=== PATIENT | female | born 1940 | race Caucasian/White ===

== ENCOUNTER 2016-10-15 20:33 | Emergency (ER) | payer MEDICARE, OTHER ==
--- NOTE | 2016-10-16 19:59 | ER ---
ADMIT: 10/15/2016 RM/LOC: ER [facility] MR#: [id number] [address] [address] DEEPIKA SWAIN [address] [place] [address] Emergency Room Report SEX: F AGE: 76 : 1940 DATE: 10/15/2016 TIME: 2032 hours. Please refer to my T-sheet for complete H and P. HISTORY OF PRESENT ILLNESS: Briefly, the patient is a 76-year-old, who comes in with a rash all over body. She recently took 2 days worth of sulfa that is when the rash started. It has been itching. She had some sulfa left over from when she was treated for a UTI while back. She had never taken it prior to this. Has no allergies otherwise. No shortness of breath. No breathing problems. No lightheadedness. PHYSICAL EXAMINATION: VITAL SIGNS: Blood pressure 120/52, pulse 91, respirations 12, temperature 100.3, saturations 95%. GENERAL: No acute distress. HEENT: Atraumatic, normocephalic. Throat is clear. LUNGS: Clear to auscultation. No crackles or wheeze. HEART: Regular. SKIN: Diffuse macular rash, lacelike on the upper and lower extremities, abdomen anterior and posterior. EMERGENCY DEPARTMENT COURSE: I gave her Decadron 20 mg and Benadryl 50 mg IM, she was improved. She had paling of the rash. No other symptoms. She was ready for discharge. ASSESSMENT: 1. Allergic reaction, generalized to sulfa. 2. Recent dysuria, which has resolved again. PLAN: Avoid sulfa in the future, prednisone 20 mg b.i.d. x5 days. Return if worse. Follow up with her doctor on , she has an appointment. Jose Euceda MD/ juan ramon JOB #: [id number] CC: Jose Euceda MD, Attending Physician Andrés Klein MD, Family Physician
[2017-01-14] MEDS ORDERED: DIOVAN160 MG PO (16:04)
[2017-01-14] MEDS ORDERED: ELIQUIS5 MG PO (16:05)
== END 2016-10-15 21:30 | disposition home or self-care (01) ==
LOC: ER 20:33
DX: T37.0X5A Adverse effect of sulfonamides, initial encounter (principal); I10 Essential (primary) hypertension; Z79.899 Other long term (current) drug therapy

== ENCOUNTER 2016-10-23 21:41 | Emergency (ER) | payer MEDICARE, OTHER ==
--- NOTE | 2016-10-24 19:08 | ER ---
ADMIT: 10/23/2016 RM/LOC: ER [facility] MR#: [id number] [address] [address] DEEPIKA SWAIN [address] [place] [address] Emergency Room Report SEX: F AGE: 76 : 1940 DATE: 10/23/2016 HISTORY OF PRESENT ILLNESS: The patient is a 76-year-old female with past medical history of hypertension and multiple UTIs, came to the ER with chief complaint of left posterior flank pain and also left mid-lower back pain mostly on the left posterior flank for the last 4 hours. The patient states recently she had been diagnosed with UTI and finished the treatment for that. The patient also denies some episodes of dysuria without emergency or frequency or hematuria. The patient denies any skin rashes and denies any fever. PHYSICAL EXAMINATION: VITAL SIGNS: The patient was afebrile in the ER, with a heart rate of 73, blood pressure was 170s over 90s. GENERAL: The patient was in mild distress. HEAD and NECK: Normal. No bruit on the neck. LUNGS: Bilateral equal breath sounds. CHEST: No chest wall tenderness. HEART: Normal heart sounds. No gallops or murmurs. ABDOMEN: Soft, and no CVA tenderness. LABORATORY DATA AND IMAGING: Chest x-ray was negative for any acute changes. EKG was also negative for any ST or T changes or arrhythmia or Q-waves. Creatinine was 1.1, with sodium of 143, potassium of 3.7, BUN of 28, and glucose of 105. WBC was 10.2. Urine was positive for 190 white blood cells and 53 red blood cells and white blood cells clumps. EMERGENCY ROOM COURSE: With the diagnosis of UTI, the patient received Levaquin 750 mg p.o. in the ER. The patient received Percocet 5/325 mg in the ER too. The pain was well controlled. The patient was discharged to home with 5 days prescription for Levaquin and follow up with the primary doctor. The patient was discharged to home with return precautions. Tomás Thomas MD/ juan ramon JOB #: [id number] CC: Tomás Thomas MD, Attending Physician Andrés Klein MD, Family Physician
[2017-01-14] MEDS ORDERED: DIOVAN160 MG PO (16:04)
[2017-01-14] MEDS ORDERED: ELIQUIS5 MG PO (16:05)
== END 2016-10-24 | disposition home or self-care (01) ==
LOC: ER 21:41
DX: N39.0 Urinary tract infection, site not specified (principal); I10 Essential (primary) hypertension; Z88.2 Allergy status to sulfonamides

== ENCOUNTER 2017-01-11 22:03 | Inpatient (IN) | payer MEDICARE, OTHER ==
[~2017-01-11] VITALS: Ht 167.6 cm; Wt 87.5 kg
--- NOTE | ~2017-01-11 | ECH ---
Transthoracic Echocardiography Report (TTE) Demographics Patient Name DEEPIKA SWAIN Date of Study 01/12/2017 L Patient Number [id number] Visit Number [id number] Date of 1940 Room Number 403 Accession Number [id number] Gender Female Age 76 year(s) Referring Ernie Mendieta [employer] Decorator Marilou Martinez [facility] Physician Physician Interpreting Sandro Pacheco Upper Stitcher Physician Supervising Ordering Physician Sandro Pacheco MD/MLP Nurse Stress Tour Counselor Conclusions Summary Technically adequate exam. The estimated left ventricular ejection fraction is 60%. Diastolic assessment reveals Grade I diastolic dysfunction. Normal right ventricle structure and function. Moderate to severe tricuspid regurgitation by color Doppler. There is severe pulmonary hypertension. The estimated pulmonary pressure (RVSP) is 85 mmHg. Procedure Type of Study TTE procedure:Echo Complete SF. Procedure Date Date: 01/12/2017 Start: 08:49 AM Technical Quality: Adequate visualization Indications:Shortness of breath and Elevated Troponin. Additional Indications:elevated proBNP Appropriate Use Criteria: 9 Height: 66 inches Weight: 192 pounds BSA: 1.97 m Rhythm: Irregular HR: 75 bpm BP: 179/88 mmHg M-Mode/2D Measurements LV Diastolic Dimension: 5.07 cm LV Systolic Dimension: 3.77 cm LV Septum Diastolic: 0.96 cm LV PW Diastolic: 0.87 cm AO Root Dimension: 2.5 cm Cardiac Output: 3.02 l/min LA Dimension: 4.03 cm Cardiac Index: 1.53 l/min*m RV Diastolic Dimension: 3.18 cm LA volume index: 22 ml/m LVOT: 1.91 cm LVOT VTI: 14.08 cm RV Base: 4.16 cm LV Stroke volume: 40.32 ml RV Mid: 3 cm LV Stroke volume index: 20.47 ml/m RV Length: 6 cm TAPSE: 1.8 cm TDI-S': 10 cm/s Doppler Measurements AV Peak Velocity: 1.02 m/s MV Peak E-Wave: 0.42 m/s AV Peak Gradient: 4.17 mmHg MV Peak A-Wave: 0.65 m/s AV Mean Gradient: 1.9 mmHg MV E/A Ratio: 0.65 LVOT Peak Velocity: 0.82 m/s MV P1/2t: 83.5 msec AV Area (Continuity):2.49 cm MV Deceleration Time: 261.1 msec TR Velocity:4.58 m/s MV Area (PHT): 2.63 cm TR Gradient:83.88 mmHg PV Peak Velocity: 0.86 m/s Estimated RAP:5 mmHg PV Peak Gradient: 2.96 mmHg Estimated RVSP: 89 mmHg Estimated PASP: 88.88 mmHg RA Area: 13.81 cm Findings Left Ventricle The left ventricle is normal in size . Diastolic assessment reveals Grade I diastolic dysfunction. Right Ventricle Normal right ventricle structure and function. Left Atrium Normal left atrial size. Right Atrium Normal right atrial size. Prominent Chiari network seen in the right atrium. Mitral Valve Normal mitral valve structure and function. Trivial mitral regurgitation by color Doppler. Aortic Valve The aortic valve is mildly sclerotic with normal structure and function. There is no aortic regurgitation by color Doppler. Tricuspid Valve Normal tricuspid valve structure and function. Moderate tricuspid regurgitation by color Doppler. There is severe pulmonary hypertension. The pulmonary pressure (RVSP) is 89 mmHg. Pulmonic Valve Normal pulmonic valve structure and function. Pericardial Effusion No evidence of pericardial effusion. Miscellaneous Visualized portions of the aortic root and ascending aorta appear normal in size. Pleural Effusion No evidence of pleural effusion. Contractility Score LV regional wall motion:(0-Non visualized 1-Normal 2-Hypokinesis 3-Akinesis 4-Dyskinesis 5-Aneurysm) Signature
--- NOTE | 2017-01-13 06:30 | HP ---
ADMIT: 01/11/2017 RM/LOC: 403 [facility] MR#: [id number] [facility]#: [id number] [address] [address] DEEPIKA SWAIN [address] [place] [address] History and Physical SEX: F AGE: 76 : 1940 DATE OF SERVICE: CHIEF COMPLAINT: Shortness of breath. HISTORY OF PRESENT ILLNESS: This is a 76-year-old female. She has a past medical history of hypertension. Apparently, over the last couple of days, she noticed some increased shortness of breath, this was particularly worse with going up stairs and mowing the lawn. This evening, when she went upstairs, it was really particularly bad, so she presented to the emergency room. She denies any feeling of chest pain. Denies any cough or worsening of pain in her chest or anything with deep breathing, surely feels short of breath. She had no fever or chills or any other problems that she knows about. PAST MEDICAL HISTORY: Includes hypertension, she does have history of UTI. MEDICATIONS: Include Diovan 80 mg daily. SOCIAL HISTORY: Current nonsmoker. No significant alcohol. FAMILY HISTORY: Mother had diabetes and father had a heart attack at age 97. PAST SURGICAL HISTORY: She denies any surgeries. ALLERGIES: SULFA. REVIEW OF SYSTEMS: Other complete review of systems obtained and negative except as above. PHYSICAL EXAMINATION: VITAL SIGNS: Temperature 97.5, pulse 72, respirations 16, blood pressure 163/100, oxygen saturation 93% on room air. GENERAL: This is a well-appearing 76-year-old female, she is in no apparent distress, she is alert, she is oriented. HEENT: She is wearing glasses. Her pupils are equally round and reactive to light and accommodation. Extraocular muscles are intact. Her throat is clear. NECK: Supple. HEART: Regular rate and rhythm without murmur. LUNGS: Clear to auscultation bilaterally. ABDOMEN: Soft without any tenderness. EXTREMITIES: Lower extremities, she has 1+ edema in the right lower extremity, trace in the left. NEURO: Cranial nerves are intact. SKIN: Unremarkable. MUSCULOSKELETAL: She can move all extremities equally bilaterally. LABORATORY AND X-RAY DATA: CBC with a white count of 5.7, hemoglobin 13.0, and platelets of 164. BMP shows sodium 142, potassium 3.7, chloride 111, creatinine 1.2, BUN 28, magnesium is 1.7. Troponin is 0.059. CK and MB are normal. Chest x-ray was unremarkable. EKG is unremarkable. ADMIT: 01/11/2017 RM/LOC: 403 [facility] MR#: [id number] [address] [address] DEEPIKA SWAIN [address] [place] [address] History and Physical SEX: F AGE: 76 : 1940 ASSESSMENT: 1. Shortness of breath. 2. Mildly elevated troponin. 3. History of hypertension. 4. Mildly low oxygen level. PLAN: She will be admitted to the hospital. I am going to put her on heparin. We will rule out for acute coronary event. However, I am more suspicious of a pulmonary embolism. We will end up Doppler in her lower extremities as well as get a CTA along with her cardiac enzymes do not trend upward; if they do, then we will address her possible need for cardiac cath before a chest CT scan to avoid contrast with her creatinine, mildly elevated at 1.2. Andrés Klein MD/ juan ramon JOB #: [id number] CC: Andrés Klein, Attending Physician Andrés Klein, Family Physician
[2017-01-14] MEDS ORDERED: DIOVAN160 MG PO (16:04)
[2017-01-14] MEDS ORDERED: ELIQUIS5 MG PO (16:05)
--- NOTE | 2017-01-15 13:40 | CO ---
ADMIT: 01/11/2017 RM/LOC: 403 [facility] MR#: [id number] [address] [address] MICHELLE SWAIN [address] [place] [address] Consultation SEX: F AGE: 76 : 1940 DATE OF CONSULTATION: 01/12/2017 ATTENDING PHYSICIAN: Andrés Klein CONSULTING PHYSICIAN: Amado Jo MD REASON FOR CONSULTATION: Elevated troponin and shortness of breath. HISTORY OF PRESENT ILLNESS: Michelle is a 76-year-old with no prior cardiac history. She has been treated for hypertension in the past, but otherwise, quite healthy. I was asked to see her this morning at the request of Dr. Klein after she presented with shortness of breath for the past several days and a mildly elevated troponin. She says her symptoms began Friday night when she went to the [facility] with her daughter. She says she goes most nights of the week to exercise. She just went up two flights of stairs, and she said she was markedly short of breath. After she recovered, she tried to get on the treadmill, but her shortness of breath and dyspnea limited her. She did not get on the exercise bike. She did okay Friday, the rest of the Friday night, but then Friday morning, she was walking up stairs with some laundry and had recurrent significant shortness of breath. Last night, she had some recurrence while she was out eating with her family. They went out to [facility]], and after they got to talking about, she thought "I should get checked out." Her EKG shows nonspecific changes, but no acute ST elevation. Her troponin was 0.059. Apparently, she was mildly hypoxic when she initially presented. She did not have any associated symptoms of chest discomfort. She has not had any palpitations. She denies any history of prior cardiac disease. She has had not had any recent presyncope or syncope. No increasing edema and the shortness of breath is all new. She denies orthopnea or PND. Her risk factors include her age and longstanding hypertension. She does not have a smoking history. She is not diabetic and no premature coronary artery disease. PAST MEDICAL HISTORY: Her only chronic medical illness is hypertension. ALLERGIES: SULFA. MEDICATIONS: Her only home medication is Diovan. PAST SURGICAL HISTORY: She denies any prior surgeries. FAMILY HISTORY: Her mother had diabetes and at age 77. Her father had an IN at age 97. No family history of stroke. SOCIAL HISTORY: She lives here in [place]. She has been for 16 years. She has two children. She worked for many years at the [employer] ADMIT: 01/11/2017 RM/LOC: 403 [facility] MR#: [id number] [address] [address] [place] [address] Consultation SEX: F AGE: 76 : 1940 before retiring. She has never smoked. She does not use alcohol and rarely uses caffeine. REVIEW OF SYSTEMS: A full 12-point review of systems was reviewed with the patient; noncontributory other than that mentioned in the HPI. PHYSICAL EXAMINATION: VITAL SIGNS: Her blood pressure this morning is 163/100. Her pulse is 72. Her O2 saturations are 93%. Respirations 16. She is afebrile. GENERAL: She is little bit quiet but alert and oriented. No acute distress and cooperative. EYES: Sclerae clear. No xanthelasmas. ENT: There is a questionable right carotid bruit. Oral mucosa is pink and moist. No jugular venous distention. HEART: Mildly distant. Regular rate and rhythm. Normal S1, S2. No murmurs, rubs or gallops. CHEST: Respirations are even and unlabored. Lungs are clear to auscultation. ABDOMEN: Obese. Soft and nontender. EXTREMITIES: Peripheral pulses palpable. No clubbing, cyanosis or edema. MUSCULOSKELETAL: Gait is normal. PSYCHIATRIC: Alert and oriented. Mood and affect are appropriate. LABORATORY DATA: Sodium 142, potassium is 3.7. Her BUN is 28, her creatinine is 1.2 with a glucose of 105. Her CK is 91 with an MB of 1.4. Troponin 0.059. A BNP is pending. White count 5.7, hemoglobin is 13, and platelet count 164,000. IMAGING: Chest x-ray shows normal heart size. I do not see any evidence of significant vascular congestion. IMPRESSION: 1. New onset shortness of breath with exertion. 2. Possible acute coronary syndrome/[id number] myocardial infarction. 3. Hypertension. RECOMMENDATIONS: I am going to proceed with an echo this morning to evaluate her LV function, and I would also like to do a D-dimer. Her main symptomatology is shortness of breath, and she has not had any chest discomfort. Apparently, she is a little hypoxic on presentation. I think we ADMIT: 01/11/2017 RM/LOC: 403 [facility] MR#: [id number] [address] [place] [address] [place] [address] Consultation SEX: F AGE: 76 : 1940 need to rule out the possibility of a pulmonary emboli. Depending on those findings, we may proceed with left heart catheterization and coronary angiography for possible acute coronary syndrome. I discussed the plan with her. I discussed the heart catheterization including the potential risk and benefits. The potential risks including, but not limited to bleeding or vascular trauma, IN, CVA, renal failure, and even a small possibility of . She states understanding. She is already on heparin and aspirin. We are going to check her fasting lipid panel, and I am going to hold off on beta-gabe for the moment because she is relatively bradycardic. Amado Jo MD/ juan ramon JOB #: [id number] CC: Andrés Klein, Attending Physician Andrés Klein, Family Physician
--- NOTE | 2017-01-25 08:43 | ER ---
ADMIT: 01/11/2017 RM/LOC: 403 [facility] MR#: [id number] [address] [address] DEEPIKA SWAIN [address] [place] [address] Emergency Room Report SEX: F AGE: 76 : 1940 DATE: 01/11/2017 SUBJECTIVE: A 76-year-old female comes into the Emergency Department with complaints of shortness of breath. Shortness of breath is primarily associated with walking up a flight of stairs. When she is sedentary, she has no shortness of breath. She did say that over the past several weeks, she has noted she becomes short of breath when she is mowing her yard. She denied any pain. Denied any lightheadedness. No fever or chills. No cough. Does have a past history of hypertension. Does not drink. PHYSICAL EXAMINATION: GENERAL: A 76-year-old female, in no acute distress. LUNGS: Clear to auscultation. CARDIOVASCULAR: Regular rate and rhythm. No murmurs, rubs, or gallops. ABDOMEN: Soft and nontender. EXTREMITIES: Unremarkable. CAMPUS PRESIDENT: No focal findings. A cardiac workup was initiated in the Emergency Department which showed poor R- wave progression on the continued LVH was 254. Troponin was 0.059, bicarb 21, BUN 28, glucose 105, magnesium 1.7. CBC within normal limits. Chest x-ray was likewise normal. The patient was being admitted with acute coronary syndrome. Miki Alexandre MD/ juan ramon JOB #: [id number] CC: Andrés Klein MD, Attending Physician Andrés Klein MD, Family Physician
--- NOTE | 2017-02-04 07:49 | DS ---
ADMIT: 01/11/2017 RM/LOC: 403 [facility] MR#: [id number] [address] [address] DEEPIKA SWAIN [address] [place] [address] General Discharge Summary SEX: F AGE: 76 : 1940 ADMISSION DATE: 01/11/2017 DISCHARGE DATE: 01/13/2017 A 25 minutes taken on the day of discharge with discharge-related activities. FINAL DIAGNOSES: 1. Shortness of breath. 2. Chest pain. 3. Elevated troponin. 4. Acute pulmonary embolism with right lower extremity deep venous thrombosis. 5. Hypertension. REASON FOR ADMISSION: This is a 76-year-old female who presented with increased shortness of breath with exertion and found to have elevated troponin. Heparin drip had been started on admission. HOSPITAL COURSE: She was admitted, placed on heparin drip, and followed closely by the next morning. Her enzymes did not trend away, they indicated cardiac disease. She was having no chest pain once she was in the hospital. Did a CT scan of her chest showing pulmonary embolism. Lower extremity Dopplers revealed a DVT in her right lower extremity. Her echo did show some pulmonary hypertension, which was fairly significant. Did a home oxygen assessment, which was okay, and discussed her need for medications, and we will plan on Eliquis 10 mg b.i.d. for discharge to home. She will maintain on her same other medications with valsartan 160 mg daily. Follow up with me in 1 to 2 weeks. Andrés Klein MD/ juan ramon JOB #: [id number] CC: Andrés Klein MD, Attending Physician Andrés Klein MD, Family Physician
== END 2017-01-13 16:21 | disposition home or self-care (01) | DRG 176 ==
LOC: ER 22:03 → 4PCU 23:40
PROVIDERS: ADMIT Internal Medicine
DX: I26.99 Other pulmonary embolism without acute cor pulmonale (principal); I27.2 Other secondary pulmonary hypertension; I82.431 Acute embolism and thrombosis of right popliteal vein; I82.441 Acute embolism and thrombosis of right tibial vein; I10 Essential (primary) hypertension; R79.89 Other specified abnormal findings of blood chemistry; R09.02 Hypoxemia